=== PATIENT | male | born 1990 | race Caucasian/White ===

== ENCOUNTER 2025-07-05 19:50 | Inpatient (IN) | payer OTHER ==
[~2025-07-05] VITALS: Ht 180.3 cm; Wt 91.4 kg
[2025-07-05 21:11] LABS: CALCIUM, TOTAL 7.5 mg/dL (8.8-10.5); CREATININE 0.85 mg/dL (0.60-1.30); GLOMERULAR FILTR. RATE CALC > 60 mL/min (>60); GLUCOSE,RANDOM 82 mg/dL (70-110); SODIUM SERUM 141 mmol/L (136-145); UREA NITROGEN, BLOOD 6 mg/dL (7-18)
[2025-07-05 21:17] LABS: ASPARTATE AMINOTRANSFERASE 97.0 U/L (15-37); TOTAL PROTEIN, SERUM 5.7 g/dL (6.4-8.2)
[2025-07-05 21:22] LABS: PLATELET COUNT (AUTO) 231 K/uL (150-450); RED BLOOD CELL COUNT(AUTO) 3.80 MIL/uL (4.50-5.90); RED CELL DISTRIBUTION WIDTH 21.5 % (11.5-14.5); WHITE BLOOD COUNT (AUTO) 10.3 K/uL (4.5-11.0)
[2025-07-05 21:53] LABS: RBC MORPHOLOGY COMMENT ABNORMAL RBC MORPH
[2025-07-05] MEDS: ONDANSETRON HCL 4 MG/2 ML VIAL IVP ONE (22:54)
[2025-07-05] MEDS ORDERED: SODIUM CHLORIDE 0.9% 100 ML ONE (22:57)
[2025-07-05] MEDS ORDERED: IOHEXOL 300 MG/ML 100 ML VIAL ONE (22:57)
[2025-07-05] MEDS ORDERED: ZOLPIDEM TARTRATE 5 MG TABLET PO PRN (23:30)
[2025-07-05] MEDS: PANTOPRAZOLE SODIUM 40 MG/VIAL IVP ONE (23:38)
[2025-07-05] MEDS: PANTOPRAZOLE SODIUM 40 MG DR TABLET PO SCH (23:48)
[2025-07-06] MEDS: PIPERACILLIN/TAZO 3.375 GM/D5W 50 ML IV ONE (02:20)
[2025-07-06 02:54] VITALS: BP 127/83; PULSE 51; RESP 20; TEMP 97.9; O2SAT 99
[2025-07-06] MEDS ORDERED: SODIUM CHLORIDE 0.9% 500 ML IV ONE (02:59)
[2025-07-06 07:26] LABS: PLATELET COUNT (AUTO) 233 K/uL (150-450); RED BLOOD CELL COUNT(AUTO) 3.80 MIL/uL (4.50-5.90); RED CELL DISTRIBUTION WIDTH 21.9 % (11.5-14.5); WHITE BLOOD COUNT (AUTO) 7.9 K/uL (4.5-11.0)
[2025-07-06 08:00] VITALS: BP 126/82; PULSE 61; RESP 19; TEMP 97.9; O2SAT 100
[2025-07-06] MEDS: DOCUSATE SODIUM 100 MG CAPSULE PO SCH (08:52)
[2025-07-06 08:53] LABS: RBC MORPHOLOGY COMMENT ABNORMAL RBC MORPH
[2025-07-06] MEDS: PANTOPRAZOLE SODIUM 40 MG/VIAL IVP SCH (08:53)
[2025-07-06] MEDS: SODIUM CHLORIDE 0.9% 1,000 ML IV SCH (08:55)
[2025-07-06] MEDS: MORPHINE SULFATE 2 MG/ML SYRINGE IVP PRN (13:26)
[2025-07-06 17:17] LABS: APPEARANCE,URINE CLEAR (CLEAR); GLUCOSE, URINE (UA) NEGATIVE (NEGATIVE); LEUKOCYTE ESTERASE ,URINE NEGATIVE (NEGATIVE); NITRATE,URINE NEGATIVE (NEGATIVE); OCCULT BLOOD,URINE NEGATIVE (NEGATIVE); SPECIFIC GRAVITIY, URINE 1.006 (1.003-1.030)
[2025-07-06] MEDS: ACETAMINOPHEN 325 MG TABLET PO PRN (18:29)
[2025-07-06] MEDS: FERROUS SULFATE 325 MG EC TABLET PO SCH (18:29)
[2025-07-06 19:25] VITALS: BP 126/85; PULSE 65; RESP 18; TEMP 98.1; O2SAT 97
[2025-07-07 02:00] VITALS: BP 125/77; PULSE 59; RESP 18; O2SAT 97
[2025-07-07 04:38] VITALS: BP 121/71; PULSE 60; RESP 18; TEMP 97.8; O2SAT 97
[2025-07-07 08:00] VITALS: BP 128/81; PULSE 56; RESP 18; TEMP 98.1; O2SAT 98
[2025-07-08 04:13] VITALS: BP 119/76; PULSE 68; RESP 18; TEMP 98.6; O2SAT 99
[2025-07-08 08:00] VITALS: BP 120/73; PULSE 64; RESP 18; TEMP 98; O2SAT 100
[2025-07-08] MEDS: ONDANSETRON HCL 4 MG/2 ML VIAL IVP PRN (13:09)
[2025-07-08 16:00] VITALS: BP 127/88; PULSE 62; RESP 16; TEMP 98.2; O2SAT 98
[2025-07-08 21:00] VITALS: BP 123/78; PULSE 72; RESP 18; TEMP 98.8; O2SAT 99
[2025-07-09 03:31] VITALS: BP 137/79; PULSE 75; RESP 18; TEMP 98.4; O2SAT 98
[2025-07-09 07:22] LABS: ASPARTATE AMINOTRANSFERASE 28.0 U/L (15-37); TOTAL PROTEIN, SERUM 5.1 g/dL (6.4-8.2)
[2025-07-09 08:51] VITALS: BP 131/85; PULSE 67; RESP 18; TEMP 98.1; O2SAT 98
[2025-07-09] MEDS ORDERED: IOHEXOL 350 MG/ML 100 ML VIAL ONE (10:49)
[2025-07-09] MEDS ORDERED: SODIUM CHLORIDE 0.9% 100 ML ONE (10:49)
[2025-07-09] MEDS ORDERED: MEBROFENIN TC99M/MCL ISOTOPE 1 EA INJ INJ ONE (10:50)
[2025-07-09] MEDS ORDERED: FERR325T27 PO (16:39)
[2025-07-09 20:11] VITALS: BP 128/79; PULSE 83; RESP 18; TEMP 98.6; O2SAT 100
[2025-07-10 07:38] VITALS: BP 135/93; PULSE 70; RESP 18; TEMP 98.2; O2SAT 98
[2025-07-10] MEDS ORDERED: DOCU-385 PO (13:43)
== END 2025-07-10 20:15 | DRG 445 ==
LOC: EMS 19:54 → EDH 23:30 → 6N 07-06 02:30
PROVIDERS: ADMIT Internal Medicine; ATTEND Internal Medicine
DX: K80.70 Calculus of gallbladder and bile duct without cholecystitis without obstruction (principal); K76.6 Portal hypertension; D63.8 Anemia in other chronic diseases classified elsewhere; R19.00 Intra-abdominal and pelvic swelling, mass and lump, unspecified site; R91.8 Other nonspecific abnormal finding of lung field; F10.10 Alcohol abuse, uncomplicated; K74.60 Unspecified cirrhosis of liver; K43.9 Ventral hernia without obstruction or gangrene; Y90.8 Blood alcohol level of 240 mg/100 ml or more; Z87.11 Personal history of peptic ulcer disease; Z90.3 Acquired absence of stomach [part of]; Z98.84 Bariatric surgery status; Z90.81 Acquired absence of spleen
CPT/HCPCS: 71260; 74177; 74181; 76700; 78226; 80048; 80076; 81003; 82105; 82140; 83690; 85025; 85610; 85730; 87040; 93005; 96374; 96375; 99291; A9537; G0378; J1171; J2270; J2405; J2470; J2543; J7030; J7040; J7050; Q9967

== ENCOUNTER 2025-07-23 11:08 | Inpatient (IN) | payer OTHER ==
[~2025-07-23] VITALS: Ht 180.3 cm; Wt 80.6 kg
[~2025-07-23 11:08] MED LIST: DOCU-385 PO; FERR325T27 PO
[2025-07-23 14:29] LABS: APPEARANCE,URINE CLEAR (CLEAR); GLUCOSE, URINE (UA) NEGATIVE (NEGATIVE); LEUKOCYTE ESTERASE ,URINE NEGATIVE (NEGATIVE); NITRATE,URINE NEGATIVE (NEGATIVE); OCCULT BLOOD,URINE NEGATIVE (NEGATIVE); SPECIFIC GRAVITIY, URINE 1.006 (1.003-1.030)
[2025-07-23 15:39] LABS: PLATELET COUNT (AUTO) 264 K/uL (150-450); RED BLOOD CELL COUNT(AUTO) 4.14 MIL/uL (4.50-5.90); RED CELL DISTRIBUTION WIDTH 24.5 % (11.5-14.5); WHITE BLOOD COUNT (AUTO) 6.4 K/uL (4.5-11.0)
[2025-07-23 15:48] LABS: CALCIUM, TOTAL 8.1 mg/dL (8.8-10.5); CREATININE 0.64 mg/dL (0.60-1.30); GLOMERULAR FILTR. RATE CALC > 60 mL/min (>60); GLUCOSE,RANDOM 104 mg/dL (70-110); SODIUM SERUM 139 mmol/L (136-145); UREA NITROGEN, BLOOD 10 mg/dL (7-18)
[2025-07-23 15:49] LABS: BAND NEUTROPHILS % (MANUAL) 0 % (0-5)
[2025-07-23 15:52] LABS: ASPARTATE AMINOTRANSFERASE 25.0 U/L (15-37); TOTAL PROTEIN, SERUM 6.0 g/dL (6.4-8.2)
[2025-07-23] MEDS ORDERED: MAGNESIUM HYDROXIDE SUSPENSION 30 ML UDCUP PO PRN (16:15)
[2025-07-23] MEDS ORDERED: HYDROCODONE/ACETAMINOPHEN 5-325 MG TABLET PO PRN (16:15)
[2025-07-23] MEDS ORDERED: MORPHINE SULFATE 4 MG/ML VIAL IVP PRN (16:15)
[2025-07-23] MEDS ORDERED: IPRATROPIUM BROMIDE 0.5 MG/2.5 ML NEB SOLUTION NEB PRN (16:15)
[2025-07-23] MEDS ORDERED: ALBUTEROL SULFATE 2.5 MG/0.5 ML NEB SOLUTION NEB PRN (16:15)
[2025-07-23] MEDS ORDERED: ONDANSETRON HCL 4 MG/2 ML VIAL IVP PRN (16:15)
[2025-07-23] MEDS ORDERED: ZOLPIDEM TARTRATE 5 MG TABLET PO PRN (16:15)
[2025-07-23] MEDS ORDERED: BISACODYL 10 MG RECTAL RECTAL SUPPOSITORY PR PRN (16:15)
[2025-07-23 16:21] LABS: BASOPHILS % (MANUAL) 2 % (0-2); LYMPHOCYTES % (MANUAL) 15 % (22-44); MONOCYTES % (MANUAL) 3 % (2-9); SEGMENTED NEUTROPHILS % 80 % (40-70)
[2025-07-23 16:31] LABS: RBC MORPHOLOGY COMMENT ABNORMAL R
[2025-07-23] MEDS: DOCUSATE SODIUM 100 MG CAPSULE PO SCH (21:00)
[2025-07-23 21:06] VITALS: BP 159/86; PULSE 89; RESP 19; TEMP 98.2; O2SAT 96
[2025-07-23] MEDS ORDERED: SODIUM CHLORIDE 0.9% 1,000 ML ONE (22:01)
[2025-07-23] MEDS: ACETAMINOPHEN 325 MG TABLET PO PRN (22:27)
[2025-07-23] MEDS: LACTULOSE 200 GM/300 ML RECTAL SOLUTION PR SCH (22:40)
[2025-07-23] MEDS: HEPARIN SODIUM,PORCINE 5,000 UNITS/ML VIAL SQ SCH (23:37)
[2025-07-24 00:23] VITALS: BP 143/93; PULSE 84; RESP 18; TEMP 98.4; O2SAT 98
[2025-07-24 03:46] VITALS: BP 142/92; PULSE 72; RESP 19; TEMP 98.2; O2SAT 98
[2025-07-24] MEDS: FERROUS SULFATE 325 MG EC TABLET PO SCH (09:03)
[2025-07-24] MEDS: PANTOPRAZOLE SODIUM 40 MG DR TABLET PO SCH (09:03)
[2025-07-24 09:10] VITALS: BP 137/93; PULSE 69; RESP 18; TEMP 98.1; O2SAT 99
[2025-07-24] MEDS ORDERED: SODIUM CHLORIDE 0.9% 1,000 ML ONE (11:13)
[2025-07-24 12:12] VITALS: BP 153/99; PULSE 101; RESP 18; TEMP 97.7; O2SAT 100
[2025-07-24] MEDS: LACTULOSE 20 GM/30 ML SOLUTION UDCUP PO SCH (15:30)
[2025-07-24 16:05] VITALS: BP 130/86; PULSE 93; RESP 18; TEMP 98.1; O2SAT 98
[2025-07-24] MEDS: RIFAXIMIN 550 MG TABLET PO SCH (21:13)
[2025-07-24 21:16] VITALS: BP 142/91; PULSE 94; RESP 18; TEMP 98.2; O2SAT 99
[2025-07-25 06:15] VITALS: BP 137/83; PULSE 76; RESP 20; TEMP 98.4; O2SAT 97
[2025-07-25 06:46] LABS: PLATELET COUNT (AUTO) 246 K/uL (150-450); RED BLOOD CELL COUNT(AUTO) 3.83 MIL/uL (4.50-5.90); RED CELL DISTRIBUTION WIDTH 24.2 % (11.5-14.5); WHITE BLOOD COUNT (AUTO) 9.3 K/uL (4.5-11.0)
[2025-07-25 06:57] LABS: CALCIUM, TOTAL 7.9 mg/dL (8.8-10.5); CREATININE 0.70 mg/dL (0.60-1.30); GLOMERULAR FILTR. RATE CALC > 60 mL/min (>60); GLUCOSE,RANDOM 84 mg/dL (70-110); SODIUM SERUM 137 mmol/L (136-145); UREA NITROGEN, BLOOD 8 mg/dL (7-18)
[2025-07-25 08:51] VITALS: BP 133/81; PULSE 86; RESP 18; TEMP 98.4; O2SAT 98
[2025-07-25] MEDS ORDERED: AMLO-257 PO (12:04)
[2025-07-25] MEDS ORDERED: LACT10SO85 PO (12:05)
[2025-07-25] MEDS ORDERED: PANT-31 PO (12:06)
[2025-07-25] MEDS ORDERED: RIFAX550 PO (12:07)
[2025-07-25] MEDS ORDERED: ACET-2247 PO (12:08)
== END 2025-07-25 15:55 | DRG 441 ==
LOC: EMS 11:08 → EDH 16:10 → 5S 20:06 → 6N 07-24 19:58 → 6S 07-24 20:06
PROVIDERS: ADMIT Internal Medicine; ATTEND Internal Medicine
DX: K76.82 Hepatic encephalopathy (principal); G93.41 Metabolic encephalopathy; K70.30 Alcoholic cirrhosis of liver without ascites; D64.9 Anemia, unspecified; I10 Essential (primary) hypertension; Z79.899 Other long term (current) drug therapy; Z98.84 Bariatric surgery status
CPT/HCPCS: 71045; 74018; 76705; 80048; 80076; 81003; 82140; 83690; 85025; 85610; 85730; 93005; 99285; J1644; J7030; 36415-L1; 36415-TC